=== PATIENT | female | born 2000 | race African-American/Black ===

== ENCOUNTER 2019-03-07 10:37 | Emergency (ER) | payer BC, MEDICAID ==
[~2019-03-07] VITALS: Ht 160 cm; Wt 85.0 kg
[~2019-03-07 10:37] MED LIST: PROAIR INHALER
[2019-03-07] MEDS ORDERED: AMOXICILLIN/POTASSIUM CLAVULANATE 875/125MG TAB PO ONE (11:45)
[2019-03-07] MEDS ORDERED: HYDROCODONE/ACETAMINOPHEN 5/325MG TABLET PO ONE (11:45)
[2019-03-07 12:36] VITALS: BP 133/72
== END 2019-03-07 13:00 | disposition home or self-care (01) ==
LOC: ER 10:37 → EDBD 10:37 → ER 13:00
DX: J02.9 Acute pharyngitis, unspecified (principal); J06.9 Acute upper respiratory infection, unspecified; J45.909 Unspecified asthma, uncomplicated; Z90.49 Acquired absence of other specified parts of digestive tract; Z88.0 Allergy status to penicillin
CPT/HCPCS: 99283; Z7610

== ENCOUNTER 2020-04-29 17:31 | Emergency (ER) | payer MEDICAID ==
[~2020-04-29] VITALS: Ht 165.1 cm; Wt 80.0 kg
[2020-04-29 17:50] VITALS: BP 147/96
== END 2020-04-29 19:40 | disposition left against medical advice (07) ==
LOC: ER 17:31
DX: M25.562 Pain in left knee (principal); M79.631 Pain in right forearm; V43.52XA Car driver injured in collision with other type car in traffic accident, initial encounter; Y93.89 Activity, other specified; Y92.488 Other paved roadways as the place of occurrence of the external cause
CPT/HCPCS: 99283